=== PATIENT | female | born 1950 | race Caucasian/White ===

== ENCOUNTER 2018-09-19 11:34 | Emergency (ER) | payer MEDICARE ==
[2018-09-19 13:06] LABS: BASOPHILS % (AUTO) 0.3 % (0.0-5.0); EOSINOPHILS % (AUTO) 1.4 % (0.0-8.0); HEMATOCRIT 37.4 % (36-48); LYMPHOCYTES % (AUTO) 12.8 % (21.0-51.0); MEAN CORPUSCULAR HEMOGLOBIN 26.5 pg (27.0-33.0); MEAN CORPUSCULAR HGB CONC 33.1 g/dL (32.0-36.0); MONOCYTES % (AUTO) 8.5 % (3.0-13.0); PLATELET COUNT (AUTO) 346 K/uL (130-400); RED BLOOD CELL COUNT(AUTO) 4.67 MIL/uL (4.00-5.50); RED CELL DISTRIBUTION WIDTH 14.9 % (11.0-15.5); WHITE BLOOD COUNT (AUTO) 13.5 K/uL (4.8-10.8)
[2018-09-19 13:12] LABS: ALBUMIN 3.2 g/dL (3.5-5.0); BILIRUBIN,TOTAL 1.2 mg/dL (0.2-1.0); CREATININE 0.9 mg/dL (0.5-1.5)
[2018-09-19 13:13] LABS: POTASSIUM 2.6 mmol/L (3.5-5.1)
[2018-09-19] MEDS ORDERED: POTASSIUM CHLORIDE 20 MEQ ERTAB PO ONE (13:40)
[2018-09-19] MEDS ORDERED: POTASSIUM CHLORIDE 20MEQ/100ML 100 ML IV ONE (13:41)
[2018-09-19 15:47] LABS: CREATININE 0.9 mg/dL (0.5-1.5); POTASSIUM 3.3 mmol/L (3.5-5.1)
== END 2018-09-19 16:38 | disposition home or self-care (01) ==
LOC: EDH 11:34
DX: R42 Dizziness and giddiness (principal); R51 Headache; R11.2 Nausea with vomiting, unspecified; I10 Essential (primary) hypertension; E78.5 Hyperlipidemia, unspecified
CPT/HCPCS: 36415; 70450; 80048; 80053; 84484; 85025; 93005; 96360; 99285; J3480